=== PATIENT | male | born 1965 | race Caucasian/White ===

== ENCOUNTER 2024-10-15 16:53 | Emergency (ER) | payer OTHER, SELFPAY ==
[2024-10-15 17:05] VITALS: BP 180/99; PULSE 75; RESP 16; TEMP 36.7; O2SAT 99
[2024-10-15 20:37] LABS: Basophils Absolute Auto 0.1 K/mm3 (0.0-0.1); Basophils Percent Auto 0.7 % (0.2-1.2); Eosinophils Absolute Auto 0.3 K/mm3 (0-0.3); Eosinophils Percent Auto 4.3 % (0-4.4); Hemoglobin 15.1 g/dL (14.0-18.0); Immature Granulocyte Absolute 0.01 K/mm3 (0.00-0.031); Immature Granulocyte Percent A 0.1 % (0-0.5); Lymphocytes Absolute Auto 1.92 K/mm3 (0.9-3.2); Lymphocytes Percent Auto 28.4 % (18.3-44.2); Mean Corpuscular HGB Conc 33.6 g/dl (32-36); Mean Corpuscular Hemoglobin 30.9 pg (26-34); Mean Corpuscular Volume 92.2 fl (80-100); Mean Platelet Volume 9.8 fl (7.4-10.4); Monocytes Absolute Auto 0.6 K/mm3 (0.1-0.6); Monocytes Percent Auto 9.3 % (2.6-8.5); Neutrophils Absolute Auto 3.9 K/mm3 (1.3-6.7); Neutrophils Percent Auto 57.2 % (45.5-73.1); Platelet Count Result 286 k/mm3 (150-375); Red Blood Count 4.88 M/mm3 (4.6-6.20); Red Cell Distribution Width 11.3 % (11.5-14.5); White Blood Count 6.8 K/mm3 (4.5-10.0)
[2024-10-15 20:47] LABS: Alanine Aminotransferase 34 U/L (6-50); Albumin Level 4.3 g/dL (3.5-5.1); Alkaline Phosphatase 78 U/L (38-126); Anion Gap 5 mmol/L (4-12); Aspartate Amino Transferase 41 U/L (17-59); Bilirubin,Total 0.6 mg/dL (0.2-1.3); Blood Urea Nitrogen 16 mg/dL (9-20); Carbon Dioxide 26 mmol/L (22-30); Chloride 107 mmol/L (98-107); Estimated CRCL calculation 105 ml/min; Estimated Glomerular Filt Rate > 60; Glucose 94 mg/dL (65-110); Magnesium 2.3 mg/dL (1.6-2.3); Sodium 138 mmol/L (137-145)
[2024-10-15 20:53] LABS: D Dimer < 0.27 ug/mL (<0.48)
--- NOTE | 2024-10-15 21:23 | ED.EXTPRO ---
HPI - Extremity Problem General Chief complaint: Extremity Problem,Nontraumatic Stated complaint: L swollen leg Time Seen by Provider: 10/15/24 20:01 History of Present Illness HPI Narrative: Patient is a 59-year-old male who presents emergency department this evening complaining of left lower extremity and a moderate swelling. Patient states that pain started approximately 3 weeks ago. Patient states that the night before the pain started he was out in the yard raking leaves and woke up the next day with left lower back which he states shoots down his left leg. Denies any falls or trauma. Denies any left lower extremity weakness or numbness, however, he does admit that his range of motion is limited secondary to the pain. Denies any bowel or bladder incontinence. Denies any fevers or chills. No additional symptoms or concerns at this time. Related Data Allergies Allergy/AdvReac Type Severity Reaction Status Date / Time No Known Allergies Allergy Verified 10/15/24 21:25 Review of Systems Review of Systems: All systems are reviewed and are negative unless stated otherwise in the HPI. Exam Narrative: General: Alert, awake, afebrile, in no acute distress. HEENT: PERRL, no rhinorrhea, no post nasal drip, oropharynx clear. Neck: Trachea midline, no JVD, no lymphadenopathy. Cardiovascular: Regular rate and rhythm, no murmurs, rubs or gallops, no peripheral edema. Respiratory: Clear to auscultation bilaterally, no tachypnea, no wheezing, no rhonchi, no rubs, no respiratory distress. Abdomen: Soft, nontender, nondistended, no rebound, no guarding, no peritoneal signs. Musculoskeletal: No joint swelling or deformity, normal muscle tone, intact and equal bilateral lower extremity hip flexion and knee extension both passively and against resistance, intact bilateral lower extremity PT/DP pulses. Skin: No rashes or petechia, no signs of infection. Psychiatric: Alert and oriented, normal behavior and judgment for situation. Neurological: Alert and oriented to person, place, and time. Follows all commands. No focal deficits, speech is clear and fluent. Course Vital Signs Vital signs: Vital Signs Temperature 98.1 F 10/15/24 17:05 Pulse Rate 75 10/15/24 17:05 Respiratory Rate 16 10/15/24 17:05 Blood Pressure 180/99 H 10/15/24 17:05 Pulse Oximetry 99 10/15/24 17:05 Oxygen Delivery Room Air 10/15/24 17:05 Temperature 98.1 F 10/15/24 17:05 Pulse Rate 75 10/15/24 17:05 Respiratory Rate 16 10/15/24 17:05 Blood Pressure 180/99 H 10/15/24 17:05 Pulse Oximetry 99 10/15/24 17:05 Oxygen Delivery Room Air 10/15/24 17:05 MDM - Extremity (Nontraumatic) MDM Narrative Medical decision making narrative: The patient was evaluated by myself in the emergency department. History is obtained from patient who is an independent historian and physical exam was performed. External medical records were reviewed at this time. IV was established and pertinent tests were ordered. Patient was administered an oral [place] 5-325 mg for pain. Laboratory results obtained revealing no acute process. D-dimer negative. Patient states that approximately 3 weeks ago he went to an urgent care and had x-rays performed at that time of his left lower extremity revealing arthritis, otherwise no acute process. Patient also states that he has tried taking some gabapentin which was given to him to see if it would help with the nerve pain and he states that he did not notice any improvement. Differential diagnosis considerations include lumbar radiculopathy, herniated disc, sciatica, DVT. Comorbidities impacting this visit include none. I have evaluated and discussed social determinants of health with the patient that could potentially impact subsequent diagnosis and treatment plans. On repeat assessment of the patient, reevaluation revealed that the patient is doing well and is in no acute distress. Patient symptoms have improved since he arrived to our emergency department. Repeat vital signs were all reviewed and noted to be stable. Differential diagnosis and treatment plan were discussed with the patient at bedside. Patient agrees with discussion and after shared medical decision making agrees with discharge. All questions were answered to the patient's satisfaction. Patient will follow up with PCP in 3-5 days. He was informed that he will likely need an outpatient lumbar MRI for further evaluation herniated disc/nerve compression which could be contributing to his left-sided sciatic the patient is agreeable with this plan. Script for [place] and Medrol Dosepak was sent to his pharmacy to use as prescribed for pain. Patient was provided with strict return precautions and instructed to return to the emergency department if any new or worsening symptoms develop. The patient was discharged in stable condition. Lab Data 10/15/24 20:31 10/15/24 20:31 Labs: Lab Results 10/15/24 Range/Units 20:31 WBC 6.8 (4.5-10.0) K/mm3 RBC 4.88 (4.6-6.20) M/mm3 Hgb 15.1 (14.0-18.0) g/dL Hct 45.0 (42.0-52.0) % MCV 92.2 (80-100) fl MCH 30.9 (26-34) pg MCHC 33.6 (32-36) g/dl RDW 11.3 L (11.5-14.5) % Plt Count 286 (150-375) k/mm3 MPV 9.8 (7.4-10.4) fl Immature Gran % (Auto) 0.1 (0-0.5) % Neut % (Auto) 57.2 (45.5-73.1) % Lymph % (Auto) 28.4 (18.3-44.2) % [place] % (Auto) 9.3 H (2.6-8.5) % Eos % (Auto) 4.3 (0-4.4) % Baso % (Auto) 0.7 (0.2-1.2) % Lymph # (Auto) 1.92 (0.9-3.2) K/mm3 [place] # (Auto) 0.6 (0.1-0.6) K/mm3 Eos # (Auto) 0.3 (0-0.3) K/mm3 Baso # (Auto) 0.1 (0.0-0.1) K/mm3 Abs Immat Gran (auto) 0.01 (0.00-0.031) K/mm3 Absolute Neuts (auto) 3.9 (1.3-6.7) K/mm3 Absolute Nucleated RBC 0.000 (0.0-0.012) K/mm3 Nucleated RBC % 0.0 (0.0-0.2) % D-Dimer < 0.27 (<0.48) ug/mL Sodium 138 (137-145) mmol/L Potassium 4.0 (3.4-5.0) mmol/L Chloride 107 (98-107) mmol/L Carbon Dioxide 26 (22-30) mmol/L Anion Gap 5 (4-12) mmol/L BUN 16 (9-20) mg/dL Creatinine 0.66 L (0.7-1.3) mg/dL Estim Creat Clear Calc 105 ml/min Estimated GFR > 60 (59 - ) Glucose 94 (65-110) mg/dL Calcium 9.0 (8.4-10.2) mg/dL Magnesium 2.3 (1.6-2.3) mg/dL Total Bilirubin 0.6 (0.2-1.3) mg/dL AST 41 (17-59) U/L ALT 34 (6-50) U/L Alkaline Phosphatase 78 (38-126) U/L Total Protein 8.0 (6.3-8.2) g/dL Albumin 4.3 (3.5-5.1) g/dL Discharge Plan Discharge Clinical Impression: Acute back pain with sciatica Patient Disposition: Home, Self-Care Condition: Improved Instructions: Antibiotic Form, Leg Pain (ED) Additional Instructions: Please follow-up with your primary care physician within the next 3-5 days. You were informed that you overtly the MRI for further evaluation of your lower back pain which could be contributing tear left-sided sciatic like pain. Take the prescribed medications as instructed to help with your pain your primary care physician. Return to the emergency department if any new or worsening symptoms develop. Patient Language: [place] Prescriptions: New hydrocodone-acetaminophen 5-325 mg tablet 1 tablet PO Q8H PRN (Reason: pain) Qty: 7 0RF methylprednisolone [Medrol (Jacobo)] 4 mg tablets,dose pack See Rx Instructions .ROUTE .COMPLEX Qty: 21 0RF Rx Instructions: orally per package directions Follow-up/Referrals: PHYSICIAN,[employer] WORK[employer] HELPER [Primary Care Provider] - Eddie Ramsey MD [Physician] - 3 Days Time of Disposition: 21:27
[2024-10-15] MEDS: HYDROcodone/acetaminophen (*CRX) 5-325 MG TABLET 1 TAB PO (21:36)
== END 2024-10-15 21:45 | disposition home or self-care (01) ==
PROVIDERS: Emergency Provider Emergency Medicine
DX: M54.42 Lumbago with sciatica, left side (principal)
CPT/HCPCS: 36415; 80053; 83735; 85025; 85380; 99283; A9270